=== PATIENT | male | born 1955 | race Caucasian/White ===

== ENCOUNTER 2017-04-25 13:44 | Emergency (ER) | payer OTHER ==
[~2017-04-25] VITALS: Ht 167.6 cm; Wt 88.9 kg
[2017-04-25 14:02] VITALS: Ht 167.6 cm; Wt 88.9 kg
[2017-04-25 16:16] VITALS: BP 111/72
== END 2017-04-25 17:50 | disposition home or self-care (01) ==
LOC: ED 13:44
DX: M54.5 Low back pain (principal); I10 Essential (primary) hypertension; Z88.5 Allergy status to narcotic agent
CPT/HCPCS: J1885; J2270